=== PATIENT | female | born 1970 | race Caucasian/White ===

== ENCOUNTER 2017-02-05 13:54 | Emergency (ER) | payer BC, OTHER ==
[2017-02-05 14:24] LABS: BASOPHILS # (AUTO) 0.1 10^3/uL (0.0-0.1); BASOPHILS % (AUTO) 0.8 %; EOSINOPHILS # (AUTO) 0.1 10^3/uL (0.0-0.7); EOSINOPHILS % (AUTO) 1.1 %; HCT - HEMATOCRIT 45.2 % (37.0-47.0); HGB - HEMOGLOBIN 15.3 g/dL (12.0-16.0); LYMPHOCYTES # (AUTO) 2.3 10^3/uL (1.5-3.5); LYMPHOCYTES % (AUTO) 21.5 %; MEAN CORPUSCULAR HEMOGLOBIN 28.9 pg (27.0-31.0); MEAN CORPUSCULAR HGB CONC 33.9 g/dL (32.0-36.0); MEAN CORPUSCULAR VOLUME 85.3 fL (81.0-99.0); MEAN PLATELET VOLUME 7.8 fL (7.9-10.8); MONOCYTES # (AUTO) 0.7 10^3/uL (0.0-1.0); MONOCYTES % (AUTO) 6.3 %; NEUTROPHILS # (AUTO) 7.5 10^3/uL (1.5-6.6); NEUTROPHILS % (AUTO) 70.3 %; RED BLOOD COUNT 5.31 10^6/uL (4.20-5.40); RED CELL DISTRIBUTION WIDTH 13.3 % (12.0-15.0); UNCORRECTED WHITE BLOOD COUNT 10.7 x10^3/uL; WHITE BLOOD COUNT 10.7 x10^3/uL (4.8-10.8)
[2017-02-05 14:29] LABS: BILIRUBIN,URINE NEGATIVE (NEGATIVE); PH,URINE 8.5 PH (5.0-7.5); UA w/ MICROSCOPIC CHARGE YES
[2017-02-05 14:30] LABS: HCG UR QUAL NEGATIVE
[2017-02-05 14:42] LABS: ALBUMIN/GLOBULIN RATIO 1.4 (1.0-2.2); BILIRUBIN,TOTAL 0.6 mg/dL (0.2-1.0); CALCIUM 9.8 mg/dL (8.5-10.3); CREATININE 0.7 mg/dL (0.4-1.0); POTASSIUM 3.5 mmol/L (3.5-5.0); TOTAL PROTEIN 7.4 g/dL (6.7-8.2)
[2017-02-05 14:49] LABS: UR CULTURE IF IND NOT INDICATED; WBC,URINE 0-3 /HPF (0-5)
[2017-02-05] MEDS ORDERED: ONDANSETRON 4 MG/2 ML VIAL IVP STA (14:54)
[2017-02-05] MEDS ORDERED: SODIUM CHLORIDE 0.9% 1,000 ML IV ONE (14:54)
[2017-02-05] MEDS ORDERED: HYDROmorphone 1 MG/ML SYRINGE IVP STA ×2 (14:54→15:28)
[2017-02-05] MEDS ORDERED: KETOROLAC 60 MG/2 ML VIAL IVP STA ×2 (14:54→16:33)
[2017-02-05] MEDS ORDERED: HYDROmorphone 1 MG/ML SYRINGE ONE ×2 (14:58→15:36)
[2017-02-05] MEDS ORDERED: ONDANSETRON 4 MG/2 ML VIAL ONE (14:58)
[2017-02-05] MEDS ORDERED: KETOROLAC 30 MG/ML VIAL ONE ×2 (14:58→16:36)
--- NOTE | 2017-02-05 15:01 | ED Physician Documentation ---
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 that comes in waves and is associated with nausea and one episode of vomiting. No urinary complaints, hematuria, or changes in her bowel movements. 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 - Present Medications Home Medications: Ambulatory Orders Medication Instructions Recorded Confirmed Ibuprofen [Motrin] 800 mg PO Q8H PRN #30 tablet 02/05/17 Ondansetron HCl [Zofran] 4 mg PO Q6H PRN #10 tablet 02/05/17 Oxycodone HCl/Acetaminophen 1 - 2 tab PO Q4H PRN #15 tablet 02/05/17 [Percocet 5-325 mg Tablet] Tamsulosin [Flomax] 0.4 mg PO DAILY #7 capsule 02/05/17 Terbinafine [Lamisil] 1 tab PO DAILY 02/05/17 02/05/17 raNITIdine [Zantac] 1 tab PO .FREQ 02/05/17 02/05/17 - Allergies Allergies/Adverse Reactions: Allergies Allergy/AdvReac Type Severity Reaction Status Date / Time No Known Drug Allergies Allergy Verified 02/05/17 14:00 - Social History Does the pt smoke?: Yes Smoking Status: Current every day smoker Does the pt drink ETOH?: Yes Does the pt have substance abuse?: No - Family History Family history: reports: Non contributory - Immunizations Immunizations are current?: Yes PD ED PE NORMAL - Vitals Vital signs reviewed: Yes - General General: Alert and oriented X 3, Other (obviously in pain) - HEENT HEENT: PERRL, EOMI - Neck Neck: Supple, no meningeal sign, No bony TTP - Cardiac Cardiac: RRR, No murmur - Respiratory Respiratory: No respiratory distress, Clear bilaterally - Abdomen Abdomen: Soft, Non tender - Back Back: No CVA TTP, No spinal TTP - Derm Derm: Normal color, Warm and dry - Extremities Extremities: No edema, No calf tenderness / cord - Neuro Neuro: Alert and oriented X 3, Normal speech - Psych Psych: Normal mood, Normal affect Results - Vitals Vitals: Vital Signs - 24 hr 02/05/17 02/05/17 02/05/17 13:56 15:23 15:38 Temperature 36.3 C L Heart Rate 84 88 70 Respiratory 19 16 18 Rate Blood Pressure 163/98 H 172/88 H O2 Saturation 100 99 99 Oxygen O2 Source Room air - Labs Labs: Laboratory Tests 02/05/17 02/05/17 02/05/17 14:12 14:12 14:20 WBC 10.7 RBC 5.31 Hgb 15.3 Hct 45.2 MCV 85.3 MCH 28.9 MCHC 33.9 RDW 13.3 Plt Count 291 MPV 7.8 L Neut # 7.5 H Lymph # 2.3 Stephens # 0.7 Eos # 0.1 Baso # 0.1 Absolute Nucleated RBC 0.01 Nucleated RBCs 0.0 Sodium 138 Potassium 3.5 Chloride 103 Carbon Dioxide 21 Anion Gap 14.0 H BUN 12 Creatinine 0.7 Estimated GFR (MDRD) 91 Glucose 137 H Calcium 9.8 Total Bilirubin 0.6 AST 20 ALT 16 Alkaline Phosphatase 46 Total Protein 7.4 Albumin 4.3 Globulin 3.1 Albumin/Globulin Ratio 1.4 Lipase 32 Urine Color LT. YELLOW Urine Clarity CLOUDY Urine pH 8.5 H Ur Specific Cora 1.015 Urine Protein NEGATIVE Urine Glucose (UA) NEGATIVE Urine Ketones NEGATIVE Urine Occult Blood LARGE H Urine Nitrite NEGATIVE Urine Bilirubin NEGATIVE Urine Urobilinogen 0.2 (NORMAL) Ur Leukocyte Esterase NEGATIVE Urine RBC 11-25 H Urine WBC 0-3 Ur Squamous Epith Cells RARE Squamous Amorphous Sediment Few Urine Bacteria None Seen Ur Microscopic Review INDICATED Urine Culture Comments NOT INDICATED Urine HCG, Qual 02/05/17 14:20 WBC RBC Hgb Hct MCV MCH MCHC RDW Plt Count MPV Neut # Lymph # Stephens # Eos # Baso # Absolute Nucleated RBC Nucleated RBCs Sodium Potassium Chloride Carbon Dioxide Anion Gap BUN Creatinine Estimated GFR (MDRD) Glucose Calcium Total Bilirubin AST ALT Alkaline Phosphatase Total Protein Albumin Globulin Albumin/Globulin Ratio Lipase Urine Color Urine Clarity Urine pH Ur Specific Cora 1.015 Urine Protein Urine Glucose (UA) Urine Ketones Urine Occult Blood Urine Nitrite Urine Bilirubin Urine Urobilinogen Ur Leukocyte Esterase Urine RBC Urine WBC Ur Squamous Epith Cells Amorphous Sediment Urine Bacteria Ur Microscopic Review Urine Culture Comments Urine HCG, Qual NEGATIVE - Rads (name of study) CT A/P Radiology: EMP read contemporaneously (3 mm left UVJ stone with hydronephrosis and hydroureter.) PD MEDICAL DECISION MAKING - ED course ED course: 46-year-old woman presents with symptoms most directly attributable to renal colic which is proven on CT, there is no evidence of infection. She improved significantly with the administration of pain medication here. The patient and family were counseled as to the diagnosis and need for followup. I counseled the patient with regard to signs and symptoms that would necessitate an urgent reevaluation in the emergency department. They understand they are welcome to return at any time if worse or if not improving as expected. This document was made in part using voice recognition software. While efforts are made to proofread this document, sound alike and grammatical errors may occur. Departure - Departure Disposition: 01 Home, Self Care Clinical Impression: Renal colic Condition: Good Record reviewed to determine appropriate education?: Yes Instructions: ED Stone Renal W Colic Prescriptions: Tamsulosin [Flomax] 0.4 mg PO DAILY #7 capsule Ibuprofen [Motrin] 800 mg PO Q8H PRN #30 tablet PRN Reason: PAIN &/OR FEVER Oxycodone HCl/Acetaminophen [Percocet 5-325 mg Tablet] 1 - 2 tab PO Q4H PRN #15 tablet PRN Reason: Pain Ondansetron HCl [Zofran] 4 mg PO Q6H PRN #10 tablet PRN Reason: Nausea / Vomiting Comments: Call your doctor to arrange a follow up appointment. Make the next available appointment. In the interim return anytime if worse or if new symptoms develop. Your blood pressure was elevated today on check in to the emergency department. This does not mean that you have hypertension, it is a common phenomenon to check into the emergency department and have elevated blood pressure. I recommend that you see your primary care physician within the week to have it rechecked when you're feeling better. Do not drink or drive while on narcotic pain medicine. Note that many narcotic pain relievers also contain tylenol/acetaminophen. Please ensure that your total dose of acetaminophen from all sources does not exceed 3 grams (3000mg) per day. You may constipated on this medication, take a stool softener such as "Colace" twice a day while you are on it. Also recommend a lpet-xvs-ycfxzya laxative such as senna or MiraLAX any day that you do not have a bowel movement. If you received narcotic pain medication in the emergency department, do not drive or operate machinery for the next 24 hours.
--- NOTE | 2017-02-05 16:16 | CT Preliminary Report ---
Exam: CT Abdomen/Pelvis W/O IMPRESSION: 1. Obstructing 3 mm left UVJ stone with left hydronephrosis and hydroureter. 2. Small intrarenal calcification noted on the right. [facility] SITE ID: [id number]
--- NOTE | 2017-02-05 16:19 | CT Report ---
EXAM: CT ABDOMEN AND PELVIS (CT KUB) EXAM DATE: 02/05/2017 03:55 PM. CLINICAL HISTORY: Left flank pain. COMPARISONS: None. TECHNIQUE: Routine axial helical CT imaging was performed through the abdomen and pelvis without IV c ontrast. Reconstructions: Coronal and sagittal. In accordance with CT protocol optimization, one or more of the following dose reduction techniques w ere utilized for this exam: automated exposure control, adjustment of mA and/or KV based on patient s ize, or use of iterative reconstructive technique. FINDINGS: Lung Bases: Unremarkable. Right Kidney/Ureter: Nonobstructing 2 mm intrarenal stone. No ureteral stones. No hydronephrosis or h ydroureter. No perinephric fat stranding. Left Kidney/Ureter: Mild hydronephrosis, hydroureter, and perinephric fat stranding due to an obstruc ting 3 mm UVJ stone. No intrarenal stones. Other Solid Organs: Noncontrast images of the solid organs are grossly unremarkable. Gallbladder/Bile Ducts: Unremarkable. Peritoneal Cavity: No free fluid, free air or alonso adenopathy. Bowel is grossly unremarkable. Normal appendix noted. Pelvic Organs: Reproductive organs and bladder are unremarkable. Vasculature: Unremarkable. Other: None. IMPRESSION: 1. Obstructing 3 mm left UVJ stone with left hydronephrosis and hydroureter. 2. Small intrarenal calcification noted on the right. [facility] Referring Provider Line: [phone] SITE ID: [id number]
[2017-02-05 16:53] VITALS: BP 146/83
== END 2017-02-05 16:59 | disposition home or self-care (01) ==
LOC: ED 13:54
DX: N13.2 Hydronephrosis with renal and ureteral calculous obstruction (principal); R03.0 Elevated blood-pressure reading, without diagnosis of hypertension; K21.9 Gastro-esophageal reflux disease without esophagitis; F17.200 Nicotine dependence, unspecified, uncomplicated
CPT/HCPCS: 36415; 74176; 80053; 81001; 81025; 83690; 85025; 96374; 96375; 96376; 99283; 99284; J1170; 81003; 87086

== ENCOUNTER 2017-02-23 12:46 | Outpatient (CLI) | payer OTHER | END 2017-02-23 12:47 | disposition home or self-care (01) | LOC: DI 12:46 | PROVIDERS: ATTEND Orthopaedic Surgery | DX: Z53.9 Procedure and treatment not carried out, unspecified reason (principal) ==

== ENCOUNTER 2017-03-16 16:28 | Outpatient (CLI) | payer OTHER ==
--- NOTE | 2017-03-17 09:03 | MRI Report ---
EXAM: RIGHT KNEE MRI WITHOUT CONTRAST EXAM DATE: 03/16/2017 05:13 PM. CLINICAL HISTORY: Right knee pain. COMPARISON: None. TECHNIQUE: Multiplanar, multisequence T1-weighted and fluid-sensitive sequences of the knee without c ontrast. Other: None. FINDINGS: Cruciate Ligaments: The anterior and posterior cruciate ligaments appear intact. Medial Meniscus: Intact. No tear is identified. Lateral Meniscus: Intact. No tear is identified. Collateral Ligaments: The medial and fibular collateral ligaments appear intact. Bones and Articular Surfaces: No osteochondral lesions. No significant articular cartilage defects ar e seen. Marrow signal appears normal. Extensor Mechanism: The patellar tendon and quadriceps insertion appear intact. Small amount of edema within the suprapatellar quadriceps fat pad and within the lateral infrapatellar fat. Musculotendinous Structures: Within the substance of the peroneus brevis muscle there is a high T2 si gnal, somewhat lobulated mass measuring 1.3 x 1.6 cm transverse and 4.7 cm craniocaudad. This lesion may track distally from the region of the proximal tibiofibular joint or popliteus tendon sheath. IMPRESSION: 1. Lobulated high T2 signal lesion within the substance of the peroneus brevis muscle, 1.3 x 1.6 x 4. 7 cm. Suspicious for a ganglion cyst. Cystic neoplasm such as cystic schwannoma possible but less lik jamel as this lesion appears to track towards the joint. 2. Edema in the suprapatellar quadriceps fat pad as well as the lateral infrapatellar fat. Suggesting fat pad impingement. [facility] MUSCULOSKELETAL RADIOLOGY SECTION Referring Provider Line: [phone] SITE ID: [id number]
== END 2017-03-16 16:29 | disposition home or self-care (01) ==
LOC: DI 16:28
PROVIDERS: ATTEND Orthopaedic Surgery
DX: M25.561 Pain in right knee (principal); R60.0 Localized edema

== ENCOUNTER 2018-03-22 16:43 | Outpatient (CLI) | payer OTHER ==
--- NOTE | 2018-03-22 22:01 | MRI Report ---
Procedure Date: 03/22/2018 Accession Number: [id number] / [id number] Procedure: MRI - Elbow RT W/O CPT Code: FULL RESULT: EXAM: RIGHT ELBOW MRI WITHOUT CONTRAST EXAM DATE: 03/22/2018 05:49 PM. CLINICAL HISTORY: Right elbow pain for over one year. COMPARISON: None. TECHNIQUE: Multiplanar, multisequence T1-weighted and fluid-sensitive sequences of the elbow without contrast. Other: None. FINDINGS: Bones: No fractures or subluxations. No marrow edema. No bone lesions. Articular Cartilage: Unremarkable. Ligaments: Small, focal partial tear at the proximal end of the radial collateral ligament. The lateral ulnar collateral ligament is intact. The ulnar collateral and annular ligaments are intact. Tendons: There is an approximately 1 x 0.8 x 0.7 cm partial tear at the proximal end of the common extensor tendon which involves approximately 80% of the tendon at this location. The common flexor tendon is unremarkable. The distal biceps, brachialis, and triceps tendons are unremarkable. Musculature: No edema or fatty atrophy. Other: The cubital tunnel and ulnar nerve are unremarkable. Small joint effusion. The subcutaneous tissues are unremarkable. IMPRESSION: 1. High-grade partial tear at the proximal end of the common extensor tendon. 2. Small, focal partial tear at the proximal end of the radial collateral ligament. 3. Small joint effusion. [facility] MUSCULOSKELETAL RADIOLOGY SECTION
== END 2018-03-22 16:44 | disposition home or self-care (01) ==
LOC: DI 16:43
PROVIDERS: ATTEND Family Medicine
DX: S56.511A Strain of other extensor muscle, fascia and tendon at forearm level, right arm, initial encounter (principal); S53.431A Radial collateral ligament sprain of right elbow, initial encounter; M25.421 Effusion, right elbow

== ENCOUNTER 2018-07-03 13:11 | Emergency (ER) | payer OTHER ==
[2018-07-03] MEDS ORDERED: ACETAMINOPHEN 325 MG TABLET PO STA (14:22)
--- NOTE | 2018-07-03 15:12 | ED Physician Documentation ---
History of Present Illness - Stated complaint Stated Complaint: COFFMAN - Chief complaint Chief Complaint: Heent - Additonal information Additional information: hx from pt 47 f prone to tension COFFMAN usually tightness to posterior head and neck has had a very atypical COFFMAN for about 10 days top of head and frontal deep ache no numbness or weakness no fever no neck stiffness no eye pain denies preg LMP < 1 m ago / approx 2 wk ago Review of Systems Constitutional: denies: Fever Throat: denies: Sore throat Cardiac: denies: Chest pain / pressure Respiratory: denies: Dyspnea GI: denies: Abdominal Pain Neurologic: reports: Headache. 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, Other HEENT: Tonsil/Adenoidectomy - Present Medications Home Medications: Ambulatory Orders Medication Instructions Recorded Confirmed raNITIdine [Zantac] 1 tab PO DAILY PRN 02/05/17 06/30/17 Butalbital/Aspirin/Caffeine 1 each PO ONCE PRN #4 capsule 07/03/18 [Fiorinal 50-325-40 mg Capsule] - Allergies Allergies/Adverse Reactions: Allergies Allergy/AdvReac Type Severity Reaction Status Date / Time No Known Drug Allergies Allergy Verified 07/03/18 13:29 - Social History Does the pt smoke?: Yes Smoking Status: Current every day smoker Does the pt drink ETOH?: Yes Does the pt have substance abuse?: No - Immunizations Immunizations are current?: Yes PD ED PE NORMAL - Vitals Vital signs reviewed: Yes - General General: Alert and oriented X 3 - HEENT HEENT: EOMI, Other (globes soft, not hazy, pupils reactive, no TA TTP, no papilledema) - Neck Neck: Supple, no meningeal sign - Cardiac Cardiac: RRR - Respiratory Respiratory: No respiratory distress, Clear bilaterally - Abdomen Abdomen: Soft, Non tender - Derm Derm: Normal color - Neuro Neuro: Alert and oriented X 3, 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, No motor deficit, No sensory deficit, Normal speech Eye Opening: Spontaneous Motor: Obeys Commands Verbal: Oriented GCS Score: 15 Results - Vitals Vitals: Vital Signs - 24 hr 07/03/18 13:27 Temperature 35.7 C L Heart Rate 94 Respiratory 15 Rate Blood Pressure 148/81 H O2 Saturation 99 Oxygen O2 Source Room air - Labs Labs: Laboratory Tests 07/03/18 15:28 VBG Total Hgb 15.4 VBG Oxyhemoglobin 92 L VBG Carboxyhemoglobin 3.2 H VBG Methemoglobin 0.2 PD MEDICAL DECISION MAKING - ED course ED course: hx and exam not suggestive of migraine sinus TA glaucoma pt doubts CO since they have alarms and rest of house feels fine but have recently turned on furnace and pellet stove given that COFFMAN has lasted 10 days now and is severe and atypcial - will image CT head neg for mass shift bleed Co normal for smoker exam no suggest meningitis TA sinusitis glaucoma etc no OCP to contribute to central venous thrombosis no papilledema to suggest intracranial HTN Departure - Departure Disposition: 01 Home, Self Care Clinical Impression: Headache Qualifiers: Headache type: unspecified Headache chronicity pattern: unspecified pattern I ntractability: not intractable Qualified Code(s): R51 - Headache Condition: Good Instructions: ED Cephalgia Unspecified Follow-Up: HANG CABALLERO, [Primary Care Provider] - Prescriptions: Butalbital/Aspirin/Caffeine [Fiorinal 50-325-40 mg Capsule] 1 each PO ONCE PRN #4 capsule PRN Reason: Headache Comments: The CT scan was fine - no tumors bleeding etc The carbon monoxide level was normal for a smoker (you should stop smoking by the way) Your exam does not suggest meningitis, sinusitis, glaucoma, temporal arteritis, or tension headache. I am not sure what is causing the headache But I think that is is safe for you to go home You can try fioricet and see if that help the headache (may cause drowsiness so do not drive for the rest of the day after you take it) Follow up with your PMD for a recheck next week
--- NOTE | 2018-07-03 15:52 | CT Report ---
Reason: severe COFFMAN Procedure Date: 07/03/2018 Accession Number: [id number] / [id number] Procedure: CT - Head W/O CPT Code: FULL RESULT: EXAM: CT HEAD EXAM DATE: 07/03/2018 03:21 PM. CLINICAL HISTORY: Severe COFFMAN. COMPARISON: None. TECHNIQUE: Multiaxial CT images were obtained from the foramen magnum to the vertex. Reformats: Sagittal and coronal. IV contrast: None. In accordance with CT protocol optimization, one or more of the following dose reduction techniques were utilized for this exam: automated exposure control, adjustment of mA and/or KV based on patient size, or use of iterative reconstructive technique. FINDINGS: Parenchyma: No intraparenchymal hemorrhage. No evidence of mass, midline shift, or CT findings of infarction. Aquino-white differentiation is distinct. Extraaxial Spaces: Normal for age. No subdural or epidural collections identified. Ventricles: Normal in size and position. Sinuses and Orbits: Imaged paranasal sinuses, orbits, and mastoids show no significant abnormality. Bones: No evidence of fracture or calvarial defect. Other: None. IMPRESSION: Normal head CT. [facility]
[2018-07-03 16:39] VITALS: BP 146/78
== END 2018-07-03 16:39 | disposition home or self-care (01) ==
LOC: ED 13:11
DX: R51 Headache (principal); F17.200 Nicotine dependence, unspecified, uncomplicated
CPT/HCPCS: 36415; 70450; 82375; 99283

== ENCOUNTER 2019-03-26 08:57 | Outpatient (CLI) | payer OTHER ==
[2019-03-26] MEDS ORDERED: GADOBUTROL 10 MMOL/10 ML VIAL ONE (10:27)
[2019-03-26] MEDS ORDERED: GADOBUTROL 10 MMOL/10 ML VIAL IVP ONE (11:39)
--- NOTE | 2019-03-28 10:21 | MRI Report ---
Reason: LESION OF LATERAL POPLITEAL NERVE, RIGHT LOWER RODRÍGUEZ Procedure Date: 03/26/2019 Accession Number: [id number] / [id number] Procedure: MRI - Lower Leg (Tib-Fib) RT W/WO CPT Code: FULL RESULT: EXAM: RIGHT CALF/TIBIA MRI WITHOUT AND WITH CONTRAST EXAM DATE: 03/26/2019 10:17 AM. CLINICAL HISTORY: Lesion of lateral popliteal nerve, right lower limb. COMPARISON: None. TECHNIQUE: Multiplanar, multisequence T1-weighted and fluid-sensitive sequences of the calf/tibia before and after administration of intravenous contrast. IV contrast: 10 mL Gadavist given IV, no reaction. Other: None. FINDINGS: Bones: No fractures or subluxations. No marrow edema or abnormal enhancement. No bone lesions. Joint Spaces: Visualized portions of the ankle and knee joints are unremarkable. Tendons: Where visualized, the Achilles and plantaris tendons are intact. Musculature: In the anterior proximal lower leg, there is a cystic structure that appears to be located within the proximal peroneus longus muscle bundle. This corresponds to the area of patient concern, marked with an MRI marker. It is low on T1, high on T2 with a low T1 and T2 signal border. Minimal peripheral enhancement. This is 1.6 x 1.8 cm transversely and extends for a cephalocaudal distance of 2.8 cm. Series 601 image 62, series 701 image 23. Peroneus brevis inferiorly is somewhat atrophic, fat intensity is seen in this lateral most aspect indicating some fatty atrophy of the peroneus brevis has occurred. Please also note that the common peroneal nerve is separate and distinct from this cystic structure in the proximal aspect of the lower leg. Series 501 image 59. Other: The subcutaneous tissues are unremarkable. No abscess or cellulitis. IMPRESSION: 1. Focal area of concern corresponds to a 1.6 x 1.8 cm transverse by 2.8 cm cephalocaudal primarily cystic structure located within the proximal aspect of the peroneus longus muscle. Low T1 and T2 signal border. These are benign imaging features. This may be related to direct trauma with organizing hematoma or potentially an unusual ganglion from the proximal tibiofibular joint. 2. This area of concern is separate from the common peroneal nerve. 3. Peroneus brevis shows some fatty atrophy inferiorly. [facility]
== END 2019-03-26 08:58 | disposition home or self-care (01) ==
LOC: DI 08:57
PROVIDERS: ATTEND Orthopaedic Surgery
DX: G57.31 Lesion of lateral popliteal nerve, right lower limb (principal)
CPT/HCPCS: 73720; A9585

== ENCOUNTER 2019-07-24 12:25 | Emergency (ER) | payer OTHER ==
--- NOTE | 2019-07-24 14:01 | ED Physician Documentation ---
History of Present Illness - Stated complaint Stated Complaint: HEEL PAIN - Chief complaint Chief Complaint: Ext Problem - History obtained from History obtained from: Patient - History of Present Illness Timing: How many weeks ago (3) - Additonal information Additional information: This is a 48-year-old woman who presents with complaints that she is having sha rp pain in her left heel that began after she started running again trying to exercise about 3 weeks ago. There was not any specific injury and when it first started she thought it was probably related to the increase in activity so she has not been running for the past 6 days but the pain seems to be worsening. If she is just sitting here not putting weight on it there is a kind of pulsating sensation but not real pain but it hurts much worse if she gets up and starts to walk on it Or first thing in the morning when she gets up. 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 HEENT: Tonsil/Adenoidectomy - Present Medications Home Medications: Ambulatory Orders Medication Instructions Recorded Confirmed raNITIdine [Zantac] 1 tab PO DAILY PRN 02/05/17 06/30/17 Butalbital/Aspirin/Caffeine 1 each PO ONCE PRN #4 capsule 07/03/18 [Fiorinal 50-325-40 mg Capsule] - Allergies Allergies/Adverse Reactions: Allergies Allergy/AdvReac Type Severity Reaction Status Date / Time No Known Drug Allergies Allergy Verified 07/24/19 12:40 - Social History Does the pt smoke?: Yes Smoking Status: Current every day smoker Does the pt drink ETOH?: Yes Does the pt have substance abuse?: No - Immunizations Immunizations are current?: Yes PD ED PE NORMAL - Vitals Vital signs reviewed: Yes - General General: Alert and oriented X 3, No acute distress, Well developed/nourished - HEENT HEENT: Atraumatic - Respiratory Respiratory: No respiratory distress - Derm Derm: Normal color, Warm and dry, No rash - Extremities Extremities: Other (The left heel is atraumatic without any bruising. There is no erythema or warmth. There is minimal discomfort with palpation in the heel pad and she is more uncomfortable with palpation along the lateral aspects of the heel pad. The Achilles is nontender. She has a palpable dorsalis pedis pulse and she is able to wiggle her toes sensation is intact light touch. Minimal discomfort with ankle dorsiflexion.) - Neuro Neuro: Alert and oriented X 3, No motor deficit, No sensory deficit, Normal speech - Psych Psych: Normal mood, Normal affect Results - Vitals Vitals: Vital Signs - 24 hr 07/24/19 07/24/19 12:40 16:21 Temperature 36.9 C 37.0 C Heart Rate 73 69 Respiratory 16 18 Rate Blood Pressure 150/79 H 151/87 H O2 Saturation 98 98 Oxygen O2 Source Room air - Rads (name of study) left foot Radiology: EMP read indepedently, EMP read contemporaneously (neg fracture) PD MEDICAL DECISION MAKING - ED course Complexity details: reviewed results, d/w patient ED course: The foot x-ray does not show evidence of any type a heel spur. No obvious fo reign body. Results were discussed with the patient. I recommended that she not be running. To do stretching exercises and to be consistent about taking Aleve in the morning and evening. Follow-up in 5 to 7 days if she continues to have pain. Monitor what she feels is a bump on her heel pad and follow-up sooner if it has growing or is red, feels hot or she develops a fever. Departure - Departure Disposition: 01 Home, Self Care Clinical Impression: Contusion of left heel Qualifiers: Encounter type: initial encounter Qualified Code(s): S90.32XA - Contusion of left foot, initial encounter Condition: Good Instructions: Heel Pain Follow-Up: HANG CABALLERO DO [Primary Care Provider] - Comments: Be consistent with taking the Aleve 2 tablets in the morning and the Aleve PM 1 tablet or 2 regular Aleve at night for the next 5-7 days. Avoid walking, running or standing a lot. Do stretching exercises as we discussed several times a day and stretch the calf immediately before getting out of bed in the morning. Continue to monitor the spot on your heel that you feels a bit of a bump. If it continues to grow, Is getting painful, red or hot then it should be reevaluated immediately. Discharge Date/Time: 07/24/19 16:26
--- NOTE | 2019-07-24 15:18 | XRAY Report ---
Reason: R heel pain Procedure Date: 07/24/2019 Accession Number: [id number] / [id number] Procedure: XR - Foot 3 View RT CPT Code: Final Report FULL RESULT: EXAM: RIGHT FOOT RADIOGRAPHY EXAM DATE: 07/24/2019 03:05 PM. CLINICAL HISTORY: Right heel pain. COMPARISON: None. TECHNIQUE: 3 views. FINDINGS: Bones: Normal. No fractures or bone lesions. Joints: Normal. No subluxations. Soft Tissues: Normal. No soft tissue swelling. IMPRESSION: No evidence of fracture or dislocation. RADIA
[2019-07-24 16:22] VITALS: BP 151/87
== END 2019-07-24 16:26 | disposition home or self-care (01) ==
LOC: ED 12:25
DX: S90.32XA Contusion of left foot, initial encounter (principal); X58.XXXA Exposure to other specified factors, initial encounter; Y93.02 Activity, running; F17.200 Nicotine dependence, unspecified, uncomplicated
CPT/HCPCS: 99282; 99283

== ENCOUNTER 2019-11-11 07:58 | Outpatient (CLI) | payer OTHER ==
[2019-11-11] MEDS ORDERED: GADOBUTROL 10 MMOL/10 ML VIAL ONE (08:42)
[2019-11-11] MEDS ORDERED: GADOBUTROL 10 MMOL/10 ML VIAL IVP ONE (09:40)
--- NOTE | 2019-11-11 14:57 | MRI Report ---
Reason: MASS OF SOFT ISSUE OF LOWER RT LEG Procedure Date: 11/11/2019 Accession Number: [id number] / [id number] Procedure: MRI - Lower Leg (Tib-Fib) RT W/WO CPT Code: Final Report FULL RESULT: EXAM: RIGHT CALF/TIBIA MRI WITHOUT AND WITH CONTRAST EXAM DATE: 11/11/2019 10:09 AM. CLINICAL HISTORY: MASS OF SOFT ISSUE OF LOWER RT LEG. COMPARISON: LOWER LEG (TIB-FIB) RT W/WO 03/26/2019 10:17 AM. TECHNIQUE: Multiplanar, multisequence T1-weighted and fluid-sensitive sequences of the calf/tibia before and after administration of intravenous contrast. IV contrast: GADAVIST . Other: None. FINDINGS: As on the prior study there is a cyst along the anterolateral aspect of the fibular head and neck which continues to demonstrate only faint peripheral enhancement and no central enhancement confirming its cystic composition. It measures 2.0 x 1.4 x 4.6 cm today compared to 1.9 x 1.6 x 4.1 cm previously. As before, the cyst communicates with the proximal tibiofibular joint via a thin stalk at its superior margin and this is almost certainly a ganglion cyst arising from the proximal tibiofibular joint. The cyst resides in the substance of the peroneus longus muscle, and there is mild focal fat along the lateral margin of the peroneus longus muscle which may reflect fatty atrophy but could also reflect the presence of an intramuscular lipoma. This is unchanged. As before, the cyst is not in direct contact with either the common peroneal nerve or the superficial or deep peroneal nerves and there is a clear fairly prominent fat plane surrounding the nerves from the cyst. No direct impingement upon the peroneal nerve by the cyst. The soft tissues elsewhere are normal save for minimal nonspecific subcutaneous edema about the lower leg. No additional masses or cysts elsewhere. Osseous structures are normal. IMPRESSION: 1. Ganglion cyst arising from the proximal tibiofibular joint extending distally within the substance of the peroneus longus muscle belly, measuring 2.0 x 1.4 x 4.6 cm today compared to 1.9 x 1.6 x 4.1 cm previously. 2. As before, the cyst does not directly impinge upon the common peroneal nerve or the superficial or deep peroneal nerves and there is ample fat surrounding these nerves the cyst from the nerves. 3. Unchanged focal fat along the lateral margin of the peroneus longus muscle belly which could reflect focal fatty atrophy but could also reflect the presence of an intramuscular lipoma. No muscle edema. Remaining musculature is normal. RADIA
== END 2019-11-11 07:59 | disposition home or self-care (01) ==
LOC: DI 07:58
PROVIDERS: ATTEND Orthopaedic Surgery
DX: M67.461 Ganglion, right knee (principal)
CPT/HCPCS: 73720; A9585